=== PATIENT | female | born 1990 | race Caucasian/White ===

== ENCOUNTER 2017-06-21 17:55 | Emergency (ER) | payer OTHER ==
[2017-06-21 19:38] LABS: HIV (1/2) Antibody/Antigen Non-Reactive (NonReactive); HIV 1/2 INDEX 0.23 S/CO (<1.00); Hep C IgG Ab Non-Reactive (NonReactive); Hep C Index 0.18 S/CO (0-0.79)
[2017-06-21 20:41] LABS: HBSAB Concentration 6873.11 mIU/mL; Hep B Surf AB Reactive (NonReactive)
== END 2017-06-21 19:36 | disposition home or self-care (01) ==
LOC: ERS 17:55
DX: Z77.21 Contact with and (suspected) exposure to potentially hazardous body fluids (principal)
CPT/HCPCS: 36415; 86706; 86803; 87389; 99283

== ENCOUNTER 2017-09-14 22:50 | Emergency (ER) | payer OTHER ==
[2017-09-15 00:33] LABS: HIV (1/2) Antibody/Antigen Non-Reactive (NonReactive); HIV 1/2 INDEX 0.07 S/CO (<1.00); Hep C IgG Ab Non-Reactive (NonReactive); Hep C Index 0.16 S/CO (0-0.79)
[2017-09-15 01:21] LABS: HBSAB Concentration 6633.28 mIU/mL; Hep B Surf AB Reactive (NonReactive)
== END 2017-09-15 00:51 | disposition home or self-care (01) ==
LOC: ERS 22:50
DX: Z77.21 Contact with and (suspected) exposure to potentially hazardous body fluids (principal)
CPT/HCPCS: 36415; 86706; 86803; 87389; 99283

== ENCOUNTER 2018-05-10 21:29 | Emergency (ER) | payer OTHER ==
[2018-05-10 23:44] LABS: HIV (1/2) Antibody/Antigen Non-Reactive (NonReactive); HIV 1/2 INDEX 0.08 S/CO (<1.00); Hep C IgG Ab Non-Reactive (NonReactive); Hep C Index 0.16 S/CO (0-0.79)
[2018-05-11 00:24] LABS: HBSAB Concentration 5627.32 mIU/mL; Hep B Surf AB Reactive (NonReactive)
== END 2018-05-10 22:55 | disposition home or self-care (01) ==
LOC: ERS 21:29
DX: Z77.21 Contact with and (suspected) exposure to potentially hazardous body fluids (principal)
CPT/HCPCS: 36415; 86706; 86803; 87389; 99283

== ENCOUNTER 2020-10-10 18:09 | Emergency (ER) | payer OTHER ==
[2020-10-10 19:29] LABS: Hep C IgG Ab Non-Reactive (NonReactive); Hep C Index 0.06 S/CO (0-0.79)
[2020-10-10 19:30] LABS: HIV (1/2) Antibody/Antigen Non-Reactive (NonReactive)
[2020-10-10 22:13] LABS: HBSAB Concentration 4039.01 mIU/mL; Hep B Surf AB Reactive (NonReactive)
== END 2020-10-10 19:00 | disposition home or self-care (01) ==
LOC: ERS 18:09
DX: S61.232A Puncture wound without foreign body of right middle finger without damage to nail, initial encounter (principal); Z77.21 Contact with and (suspected) exposure to potentially hazardous body fluids; W46.0XXA Contact with hypodermic needle, initial encounter
CPT/HCPCS: 36415; 86706; 86803; 87389; 99283